=== PATIENT | male | born 1940 | race Caucasian/White ===

== ENCOUNTER 2018-11-02 09:12 | Inpatient (IN) | payer OTHER ==
[~2018-11-02] VITALS: Ht 167.6 cm; Wt 74.8 kg
[2018-11-02] MEDS ORDERED: FORTAMET1000 MG (12:04)
[2018-11-02] MEDS ORDERED: GABAPENTIN100 MG (12:05)
[2018-11-02] MEDS ORDERED: OMEPRAZOLE20 MG (12:05)
[2018-11-02] MEDS ORDERED: ACID CONTROL150 MG (12:05)
[2018-11-02] MEDS ORDERED: TAMS0.4C (12:06)
[2018-11-02] MEDS ORDERED: LOSARTAN POTASS25 MG (12:06)
[2018-11-02] MEDS ORDERED: ASPIR 8181 MG (12:07)
[2018-11-02] MEDS ORDERED: SIMVASTATIN10 MG (12:07)
[2018-11-02] MEDS ORDERED: LANTUS SOL100 UNIT/1 (12:07)
== END 2018-11-09 16:53 | disposition home or self-care (01) | DRG 331 ==
LOC: O/R 11-06 05:40 → SURH 11-06 17:30
PROVIDERS: ADMIT Colon & Rectal Surgery
PROC: 07TB0ZZ Resection of Mesenteric Lymphatic, Open Approach (ICD-10-PCS; 2018-11-06)
PROC: 0DTK0ZZ Resection of Ascending Colon, Open Approach (ICD-10-PCS; principal; 2018-11-06 13:15)
DX: D12.2 Benign neoplasm of ascending colon (principal); R59.0 Localized enlarged lymph nodes; K66.0 Peritoneal adhesions (postprocedural) (postinfection); C61 Malignant neoplasm of prostate; K21.9 Gastro-esophageal reflux disease without esophagitis; E78.00 Pure hypercholesterolemia, unspecified; E83.42 Hypomagnesemia; Z86.010 Personal history of colon polyps

== ENCOUNTER 2018-11-05 07:00 | Day surgery (SDC) | payer OTHER ==
[~2018-11-05 07:00] MED LIST: ACID CONTROL150 MG; ASPIR 8181 MG; FORTAMET1000 MG; GABAPENTIN100 MG; LANTUS SOL100 UNIT/1; LOSARTAN POTASS25 MG; OMEPRAZOLE20 MG; SIMVASTATIN10 MG; TAMS0.4C
== END 2018-11-05 13:00 | disposition home or self-care (01) ==
LOC: AMB-ENDOS 07:00
DX: D12.3 Benign neoplasm of transverse colon (principal); K64.1 Second degree hemorrhoids